=== PATIENT | male | born 1985 | race Caucasian/White ===

== ENCOUNTER 2017-01-24 05:56 | Emergency (ER) | payer SELFPAY ==
[2017-01-24 06:04] VITALS: RESP 18; TEMP 97.9
[2017-01-24] MEDS ORDERED: IPRATROPIUM/ALBUTEROL 3 ML DEYVIAL ONE (06:06)
[2017-01-24] MEDS ORDERED: NS 1,000 ML IV ONE (06:07)
[2017-01-24] MEDS ORDERED: IPRATROPIUM/ALBUTEROL 3 ML DEYVIAL IH ONE (06:10)
--- NOTE | 2017-01-24 06:13 | EDPHY ---
H & P Stated Complaint: sob x 2 days, unable to sleep Time Seen by Provider: 01/24/17 06:02 HPI/ROS: This 31 year old male with PMH of anxiety, ulcer, IBS and GERD presents to the ED tonight after waking up from his sleep with wheezing and SOB over the last couple of days. On occasion he will feel short of breath after eating a big meal. He has been reading up on the internet and feels his reflux may be contributing to his symptoms and has been taking OTC Prilosec and Zantac. He has also been trying apple cider vinegar. He also takes supplements (slippery elm, Magnesium, MVI, Fish Oil, Vit D3, B Supplement). He uses OTC nasocort for sinus allergies and an ASA per day "just because." He denies fever, cough ( although he has post nasal drip), chest pain, abdominal pain, swelling in his legs or other recent illness. He does not smoke but his partner smokes outside. He works at [employer] and they give them a free meal so he often will go home, eat a large meal from the restaurant and then sleep an hour or two later. He occasionally will have a beer or wine cooler. He likes spicy food and chocolate as well. He denies h/o asthma. Source: Patient Exam Limitations: No limitations - Personal History Current Tetanus/Diphtheria Vaccine: No Current Tetanus Diphtheria and Acellular Pertussis (TDAP): No - Medical/Surgical History PMH: PMH: IBS, ulcer, Anxiety, GERD PSH: Denied FH: Denied Meds: OTC: Prilosec, Zantac, Nasocort, Slippery Elm, MVI, Fish Oil, Vit D3, B supplement, Magnesium, ASA Hx Asthma: No Hx Chronic Respiratory Disease: No Hx Diabetes: No Hx Cardiac Disease: No Hx Renal Disease: No Hx Cirrhosis: No Hx Alcoholism: No Hx HIV/AIDS: No Hx Splenectomy or Spleen Trauma: No Other PMH: med hx-none. surg- rosetta removed,wisdom teeth - Family History Significant Family History: No pertinent family hx - Social History Smoking Status: Never smoked (Occasional ETOH, no illicits) Tobacco Use: Secondhand Alcohol Use: Occasionally Drug Use: None - Physical Exam Exam: Gen: A/O x 3, Anxious HEENT: NC/AT, PERRLA, EOMI, oropharynx without erythema or exudate; mucosa moist ; +PND; uvula midline, no breath odor Cardiac: Tachycardic, regular, no M/G/R Pulmonary: Scant expiratory wheeze; no retractions; no significant increased work of breathing Abdomen: soft, NT, NT Extremities: no C/C/E Neuro: Anxious, nonfocal Constitutional: Initial Vital Signs Temperature (C) 97.9 F 01/24/17 05:59 Heart Rate 106 H 01/24/17 05:59 Respiratory Rate 18 01/24/17 05:59 Blood Pressure 149/92 H 01/24/17 05:59 O2 Sat (%) 93 01/24/17 05:59 O2 Delivery Mode Room Air Allergies/Adverse Reactions: No Known Allergies Allergy (Verified 05/24/16 07:22) Home Medications: Medication Instructions Recorded Albuterol [Proventil Inhaler HFA 1 - 2 puffs IH Q4H #1 mdi 01/24/17 (*)] Medical Decision Making - Diagnostics Imaging Results: Imaging Impressions Chest X-Ray 01/24/17 06:07 Impression: Mild prominence of perihilar interstitial markings and peribronchial cuffing. Findings are nonspecific but can be seen with mild bronchitis, reactive airway disease, or viral process. Imaging: I viewed and interpreted images myself ED Course/Re-evaluation: The patient was seen and examined. VS reviewed. Heart rate 110-120. Ox sat on arrival 92-93%. He was given a duoneb with resolution of dyspnea and sats returned to 97%. IVF for hydration returned heart rate to 90s. CBC, chem and d -dimer nml. 2-view CXR read by me and showed no infiltrate or effusion. The patient was advised to not eat within four hours of sleep, avoid oral intake that can worsen reflux (spicy foods, chocolate, peppermint, ETOH etc). D/C ASA. Reduce unnecessary supplement use. Try and cut down on the Prilosec. May continue Zantac for now. He has no insurance and no PCP. Informed of the [facility]. He should monitor and follow up for his intermittently elevated BP. He will be getting health insurance in the fall. He was prescribed an Albuterol MDI. He will return to the ER if symptoms change or worsen. VSS at discharge. Differential Diagnosis: Including but not limited to: GERD, Bronchitis, Pneumonia, PE, Anxiety - Data Points Laboratory Results: Laboratory Results 01/24/17 06:15 01/24/17 06:15 Medications Given: Discontinued Medications Albuterol/Ipratropium (Duoneb) 3 ml IH EDNOW ONE Stop: 01/24/17 06:11 Last Admin: 01/24/17 06:11 Dose: 3 ml Sodium Chloride (Ns) 1,000 mls @ 0 mls/hr IV ONCE ONE PRN Reason: Wide Open Stop: 01/24/17 06:08 Last Admin: 01/24/17 06:15 Dose: 1,000 mls Departure - Departure Disposition: Home, Routine, Self-Care Clinical Impression: Wheezing without diagnosis of asthma, GERD (gastroesophageal reflux disease) Condition: Good Instructions: Albuterol (By breathing), Gastroesophageal Reflux Disease (ED), Wheezing (ED) Additional Instructions: Do not eat within 3 -4 hours of sleep. Avoid alcohol, peppermint, chocolate, spicy foods etc as discussed. Discontinue aspirin and consider reducing the gyao-sto-erxiyyu supplements you are taking. Follow up with a primary care provider for re-evaluation and monitoring of your blood pressure. Return to the ER if any further problems or concerns. Referrals: [facility],. [Clinic] - As per Instructions Prescriptions: Albuterol [Proventil Inhaler HFA (*)] 1 - 2 puffs IH Q4H #1 mdi
[2017-01-24 06:27] LABS: % IMMATURE GRANULYOCYTES 0.3 % (0.0-1.1); ABSOLUTE IMMATURE GRANULOCYTES 0.03 10^3/uL (0.00-0.10); ADD DIFF? NO; ADD MORPH? NO; ADD SCAN? NO; ATYPICAL LYMPHOCYTE FLAG 10 (0-99); FRAGMENT RBC FLAG 0 (0-99); HEMATOCRIT 50.2 % (40.0-51.0); HEMOGLOBIN 17.4 g/dL (13.7-17.5); LEFT SHIFT FLG 0 (0-99); LIPEMIA HEMOLYSIS FLAG 90 (0-99); MEAN CELL HEMOGLOBIN CONCENTR. 34.7 g/dL (32.4-36.7); MEAN CELL VOLUME 83.7 fL (81.5-99.8); MEAN PLATELET VOLUME 9.7 fL (8.7-11.7); PLATELET CLUMPS FLAG 10 (0-99); PLATELET COUNT 380 10^3/uL (150-400); RED CELL DISTRIBUTION WIDTH 13.1 % (11.5-15.2)
[2017-01-24 06:46] LABS: ANION GAP 16 mEq/L (8-16); CALCIUM 9.8 mg/dL (8.5-10.4); CARBON DIOXIDE 27 mEq/l (22-31); CHLORIDE 100 mEq/L (97-110); CREATININE 0.9 mg/dL (0.7-1.3); GLOMERULAR FILTRATION RATE > 60; GLUCOSE 97 mg/dL (70-100); POTASSIUM 3.9 mEq/L (3.5-5.2); SODIUM 143 mEq/L (134-144)
[2017-01-24 08:01] VITALS: BP 118/67; PULSE 89; O2SAT 97
== END 2017-01-24 08:00 | disposition home or self-care (01) ==
LOC: CED 05:56
DX: R06.2 Wheezing (principal); K21.9 Gastro-esophageal reflux disease without esophagitis
CPT/HCPCS: 71020-PO; 80048-PO; 85025-PO; 85378-PO

== ENCOUNTER 2017-02-27 21:23 | Emergency (ER) | payer SELFPAY ==
[2017-02-27 21:38] VITALS: BP 140/92; PULSE 84; RESP 16; TEMP 98.1; O2SAT 99
--- NOTE | 2017-02-27 21:44 | EDPHY ---
H & P Time Seen by Provider: 02/27/17 21:36 HPI/ROS: This patient has had a gold ring on his left middle finger for 5 years and has become quite tight. He attempted to remove the ring tonight with various methods including pliers that causes mild skin abrasion increasing pain in finger swelling. He requests that we cut the ring off. He reports mild paresthesias in the affected finger. He reports the pain is mild to moderate in the affected finger. ROS: No fevers. No other constitutional symptoms Integumentary: No significant bleeding. No redness to the affected finger 5 point ROS is otherwise negative Past Medical/Surgical History: otherwise healthy Smoking Status: Never smoked Physical Exam: Physical Exam Vital signs are normal. General: No acute distress Cardiac: Brisk capillary refill is intact throughout. Extremities: Atraumatic normal except for left 3rd finger Left 3rd finger: Patient has a tight cold pain in the middle finger left hand with mild swelling to the phalanx distal to the ring with his superficial abrasion to the area of the ring. He is neurovascularly intact to the affected finger. Skin: No rash or pallor. Constitutional: Initial Vital Signs Temperature (C) 36.7 C 02/27/17 21:36 Heart Rate 84 02/27/17 21:36 Respiratory Rate 16 02/27/17 21:36 Blood Pressure 140/92 H 02/27/17 21:36 O2 Sat (%) 99 02/27/17 21:36 O2 Delivery Mode Room Air Allergies/Adverse Reactions: No Known Allergies Allergy (Verified 02/27/17 21:38) Home Medications: Medication Instructions Recorded Albuterol [Proventil Inhaler HFA 1 - 2 puffs IH Q4H #1 mdi 01/24/17 (*)] MDM/Departure - MDM Procedures: Ring removal: After verbal consent using a ring cutter I easily removed the ring. I used a Silvia clamp a needle powder truck driver to spread the ring and removed thereafter. There were no complications. Patient tolerated this well. Our tech then cleaned the finger with soapy water and applied bacitracin. We counseled the patient regarding acute wound care - Depart Disposition: Home, Routine, Self-Care Clinical Impression: Tight ring on finger Condition: Good Instructions: Acute Wounds (ED) Additional Instructions: Diagnosis: Tight ring on finger-removed Plan: Gently clean area with warm soapy water each day. Tylenol or ibuprofen for discomfort Tingling and swelling should resolve over the next day or 2. Return if he develops redness, discharge or other concerns for infection. Referrals: NONE *PRIMARY CARE P,. [Primary Care Provider] - As per Instructions
== END 2017-02-27 21:45 | disposition home or self-care (01) ==
LOC: CED 21:23
DX: S60.443A External constriction of left middle finger, initial encounter (principal); W49.04XA Ring or other jewelry causing external constriction, initial encounter

== ENCOUNTER 2018-07-24 07:25 | Day surgery (SDC) | payer MEDICAID ==
[2018-07-24] MEDS ORDERED: LIDOCAINE 1% 2 ML INJ ONE (07:52)
[2018-07-24] MEDS ORDERED: LR 1,000 ML IV ONE (07:59)
[2018-07-24] MEDS ORDERED: LIDOCAINE 1% 2 ML INJ ID PRN (07:59)
[2018-07-24] MEDS ORDERED: NALOXONE HCL 0.4 MG/ML INJ IVP PRN (08:58)
[2018-07-24] MEDS ORDERED: fentaNYL 100 MCG/2 ML INJ IVP PRN (08:58)
--- NOTE | 2018-07-24 08:58 | PDANEPAE ---
ANE Past Medical History - Cardiovascular History Hx Hypertension: No Hx Arrhythmias: No Hx Chest Pain: No Hx Coronary Artery / Peripheral Vascular Disease: No Hx CHF / Valvular Disease: No Hx Palpitations: No - Pulmonary History Hx COPD: No Hx Asthma/Reactive Airway Disease: Yes Hx Recent Upper Respiratory Infection: No Hx Oxygen in Use at Home: No Hx Sleep Apnea: No Sleep Apnea Screening Result - Last Documented: Negative Pulmonary History Comment: allergy triggers asthma uses flovent - Neurologic History Hx Cerebrovascular Accident: No Hx Seizures: No Hx Dementia: No - Endocrine History Hx Diabetes: No - Renal History Hx Renal Disorders: No - Liver History Hx Hepatic Disorders: No - Neurological & Psychiatric Hx Hx Neurological and Psychiatric Disorders: Yes Neurological / Psychiatric History Comment: high anxiety - Cancer History Hx Cancer: No - Congenital Disorder History Hx Congenital Disorders: No - GI History Hx Gastrointestinal Disorders: Yes Gastrointestinal History Comment: bloated, abd pain,IBS - Other Health History Other Health History: chronic rhinitis. lipoma removed left arm - Chronic Pain History Chronic Pain: No - Surgical History Prior Surgeries: wisdom teeth ANE Review of Systems Review of Systems: - Exercise capacity METS (RN): 4 METS ANE Patient History - Allergies Allergies/Adverse Reactions: cat dander Allergy (Verified 07/17/18 13:04) Wheezing mold Allergy (Verified 07/17/18 13:04) Wheezing - Home Medications Home Medications: Claritin 07/17/18 [Last Taken Unknown] Flovent Hfa 07/17/18 [Last Taken 07/24/18] Lamictal 07/17/18 [Last Taken 07/24/18] Prilosec 07/17/18 [Last Taken 07/24/18] Propranolol HCl 07/17/18 [Last Taken 07/24/18] Tyra Allergy 07/24/18 [Last Taken 07/24/18] - NPO status NPO Since - Liquids (Date): 07/24/18 NPO Since - Liquids (Time): 04:30 NPO Since - Solids (Date): 07/23/18 NPO Since - Solids (Time): 06:00 - Smoking Hx Smoking Status: Never smoked - Family Anes Hx Family Hx Anesthesia Complications: none ANE Labs/Vital Signs - Vital Signs Blood Pressure: 118/92 Heart Rate: 82 Respiratory Rate: 18 O2 Sat (%): 97 Height: 172.72 cm Weight: 72.575 kg ANE Physical Exam - Airway Neck exam: FROM Mallampati Score: Class 1 Mouth exam: normal dental/mouth exam - Pulmonary Pulmonary: no respiratory distress, no rales or rhonchi, clear to auscultation - Cardiovascular Cardiovascular: regular rate and rhythym, no murmur, rub, or gallop - ASA Status ASA Status: II ANE Anesthesia Plan Anesthesia Plan: GA with mask
[2018-07-24] MEDS ORDERED: LIDOCAINE 2% 5 ML SDV ONE (09:46)
[2018-07-24] MEDS ORDERED: PROPOFOL/EMULSION 500 MG/50 ML BOTTLE IV ONE (09:46)
--- NOTE | 2018-07-24 09:55 | PDGENHP ---
History & Physical Chief Complaint: Diarrhea. GERD. Dysphagia History of Present Illness: Longstanding diarrhea. Generalized and migratory abdominal pain. GERD and intermittent dysphagia Pertinent Past, Social, Family History: Anal Fissure. Lipomas. Chronic diarrhea. FH: Grandmother with CRC. SH: No tobacco. Rare ETOH. Relevant Physical Exam: GEN: NAD. CTA B/L. RRR without m/r/g. GI: Soft. NABS. Abdominal wall lipomas. NT/ND. Cardiorespiratory Assessment: ASA II. EGD/Colonoscopy with MAC
--- NOTE | 2018-07-24 10:11 | GIREPORT ---
[facility] Surgical Services - Endoscopy Department Patient Name: Servando Kapoor Procedure Date: 07/24/2018 9:55 AM Patient Type: Outpatient Attending MD/ ER Physician: Emerson Javed MD Procedure: Upper GI endoscopy Indications: Dysphagia, Heartburn Providers: Emerson Javed MD Medicines: Propofol per Anesthesia Complications: No immediate complications. Description of Procedure: After obtaining informed consent, the endoscope was passed under direct vision. Throughout the procedure, the patient's blood pressure, pulse, and oxygen saturations were monitored continuously. The Endoscope was intro duced through the mouth, and advanced to the second part of duodenum. The [facility] er GI endoscopy was accomplished without difficulty. The patient tolerated th e procedure well. Findings: Mucosal changes including ringed esophagus were found in the middle thi rd of the esophagus and in the lower third of the esophagus. Esophageal findi ngs were graded using the Eosinophilic Esophagitis Endoscopic Reference Sco re (EoE-EREFS) as: Edema Grade 1 Present (decreased clarity or absence of vascular markings), Rings Grade 2 Moderate (distinct rings that do not occlude passage of diagnostic 8-10 mm endoscope), Exudates Grade 0 None (no white lesions seen), Furrows Grade 1 Present (vertical lines with or wi thout visible depth) and Stricture none (no stricture found). Biopsies were obtained from the proximal and distal esophagus with cold forceps for histology of suspected eosinophilic esophagitis. Localized moderate inflammation characterized by erosions and erythema was found in the gastric body. Biopsies were taken with a cold forceps for histology. The duodenal bulb, first portion of the duodenum and second portion of the duodenum were normal. Biopsies for histology were taken with a cold for ceps for evaluation of celiac disease. Estimated Blood Loss: Estimated blood loss: none. Post Op Diagnosis: - Esophageal mucosal changes consistent with eosinophilic esophagitis. Biopsied. - Chronic gastritis. Biopsied. - Normal duodenal bulb, first portion of the duodenum and second portio n of the duodenum. Biopsied. Recommendation: - Await pathology results. - Use Nexium (esomeprazole) 40 mg PO BID. - Avoid all NSAIDs - Treat H.pylori if found on histology. - Return to GI office at appointment to be scheduled. - Mechanical soft diet. - Perform a colonoscopy today. - Thank you for allowing me to be involved in the care of your patient. Attending Participation: I personally performed the entire procedure without the assistance of a fellow, resident or surg ical certified nursing assistant instructor. Emerson Javed MD Emerson Javed MD 07/24/2018 10:10:42 AM This report has been signed electronicallyDavid MD Tegan Number of Addenda: 0 Note Initiated On: 07/24/2018 9:55 AM [email or web address]
--- NOTE | 2018-07-24 10:46 | GIREPORT ---
[facility] Surgical Services - Endoscopy Department Patient Name: Servando Kapoor Procedure Date: 07/24/2018 9:55 AM Patient Type: Outpatient Attending MD/ ER Physician: Emerson Javed MD Procedure: Colonoscopy Indications: Chronic diarrhea Providers: Emerson Javed MD Medicines: Propofol per Anesthesia Complications: No immediate complications. Description of Procedure: After obtaining informed consent, the scope was passed under direct vis ion. Throughout the procedure, the patient's blood pressure, pulse, and oxyg en saturations were monitored continuously. The Colonoscope with irrigatio n channel was introduced through the anus and advanced to the terminal il eum. The colonoscopy was performed without difficulty. The patient tolerated the procedure well. The quality of the bowel preparation was excellent. The terminal ileum, ileocecal valve, appendiceal orifice, and rectum were photographed. Findings: The digital rectal exam was normal. Pertinent negatives include normal sphincter tone, no palpable rectal lesions and normal prostate (size, s hape, and consistency). Skin tags were found on perianal exam. The terminal ileum appeared normal. Normal mucosa was found in the entire colon. Biopsies for histology wer e taken with a cold forceps from the right colon and left colon for evalu ation of microscopic colitis. A 6 mm polyp was found in the rectum. The polyp was semi-sessile. The p olyp was removed with a cold snare. Resection and retrieval were complete. Estimated Blood Loss: Estimated blood loss: none. Post Op Diagnosis: - Perianal skin tags found on perianal exam. Related to healed anal fis sure. - The examined portion of the ileum was normal. - Normal mucosa in the entire examined colon. Biopsied. - One 6 mm polyp in the rectum, removed with a cold snare. Resected and retrieved. Recommendation: - Await pathology results. - Repeat colonoscopy (date not yet determined) for surveillance based o n pathology results. - Return to GI office at appointment to be scheduled. - Resume previous diet. - Continue present medications. - Patient has a contact number available for emergencies. The signs and symptoms of potential delayed complications were discussed with the pat ient. Return to normal activities tomorrow. Written discharge instructions we re provided to the patient. - Thank you for allowing me to be involved in the care of your patient. Attending Participation: I personally performed the entire procedure without the assistance of a fellow, resident or surg ical virtual customer assistant. Emerson Javed MD Emerson Javed MD 07/24/2018 10:45:58 AM This report has been signed electronicallyDavid MD Tegan Number of Addenda: 0 Note Initiated On: 07/24/2018 9:55 AM Total Procedure Duration Time 0 hours 10 minutes 49 seconds [email or web address]
[2018-07-24 11:17] VITALS: BP 131/86
--- NOTE | 2018-07-24 11:18 | POSTANESTH ---
Post Anesthetic Evaluation Cardiovascular Status: Normal, Stable Respiratory Status: Normal, Stable Level of Consciousness/Mental Status: Can Participate in Eval Pain Control: Adequate, Prn Tx Ordered Nausea/Vomiting Control: Adequate, Prn Tx Ordered Complications Possibly Related to Anesthesia: None Noted
== END 2018-07-24 11:50 | disposition home or self-care (01) ==
LOC: FSGY 07:25
PROVIDERS: ATTEND Internal Medicine Gastroenterology
DX: K20.0 Eosinophilic esophagitis (principal); K62.1 Rectal polyp; K29.50 Unspecified chronic gastritis without bleeding; R13.10 Dysphagia, unspecified; R19.7 Diarrhea, unspecified; K21.9 Gastro-esophageal reflux disease without esophagitis; K64.4 Residual hemorrhoidal skin tags; K62.5 Hemorrhage of anus and rectum
CPT/HCPCS: J2704